=== PATIENT | female | born 1995 | race Caucasian/White ===

== ENCOUNTER 2024-08-29 11:29 | Emergency (ER) | payer OTHER, SELFPAY ==
[2024-08-29 12:51] VITALS: BP 125/84; PULSE 73; RESP 16; TEMP 36.2; O2SAT 98; BMI 26.2
[2024-08-29 13:20] LABS: Add Manual Diff / Slide Review NO; Hematocrit 39.9 % (36-46); Hemoglobin 13.9 g/dL (12.0-16.0); Lymphocytes Absolute Auto 3500 /uL (1100-4500); Mean Corpuscular HGB Conc 34.7 % (30-36); Mean Corpuscular Hemoglobin 31.0 PG (26-34); Mean Corpuscular Volume 89.3 fL (80-100); Platelet Count 280 X10^3/uL (150-400)
[2024-08-29 13:32] LABS: Culture Indicated Urine Cult Not Indicated
[2024-08-29 13:33] LABS: Alanine Aminotransferase 19 IU/L (<35); Albumin 4.7 g/dL (3.5-5.0); Albumin Globulin Ratio 1.4 (1.0-2.8); Alkaline Phosphatase 55 U/L (38-126); Blood Urea Nitrogen 6 mg/dL (7-17); Calcium 9.2 mg/dL (8.4-10.2); Carbon Dioxide 25 mmol/L (22-32); Chloride 104 mmol/L (98-107); Estimated Glomerular Filt Rate > 60 mL/min (>60); Globulin 3.3 g/dL (1.7-4.1); Glucose 91 mg/dL (70-99); HEMOLYSIS 18 (0-50); Lipase 59 U/L (23-300); Potassium 4.0 mmol/L (3.4-5.1); Sodium 138 mmol/L (137-145); Total Protein 8.0 g/dL (6.3-8.2)
--- NOTE | 2024-08-29 18:28 | DI.CT.S_ITS ---
PROCEDURE: CT ABDOMEN PELVIS W CON INDICATIONS: RLQ abd pain TECHNIQUE: After the administration of intravenous contrast, axial sections acquired from the lung bases to the pubic symphysis. Coronal and sagittal reformats were performed. For radiation dose reduction, the following was used: automated exposure control, adjustment of mA and/or kV according to patient size. COMPARISON: None. FINDINGS: Image quality: Diagnostic. Lower Chest: No significant findings. ABDOMEN: Liver: No solid mass. Gallbladder: No radiopaque gallstones or wall thickening. Biliary ducts: No biliary dilation. Pancreas: No ductal dilation. Spleen: Size is within normal limits. Adrenal Glands: No adrenal nodules. Kidneys and Ureters: No hydronephrosis. No solid mass. No complex renal cystic lesion which requires follow up. Stomach and Bowel: Normal colonic caliber, without significant wall thickening. Normal appendix. Peritoneum: No abnormal intraperitoneal fluid. No free air. Ventral Wall: No significant ventral hernia. Abdominal Nodes: No retroperitoneal or mesenteric adenopathy by size criteria. Vessels: Aorta and inferior vena cava are normal in size. PELVIS: Pelvic Organs: Intrauterine device in place. Left ovarian cyst measuring 2.3 cm. Lower vaginal cyst, may represent a Bartholin's gland cyst. Bladder: No bladder wall thickening, accounting for underdistention. Pelvic Nodes: No enlarged lymph nodes. Miscellaneous: No inguinal hernias are seen. Bones: No aggressive osseous abnormality. IMPRESSION: 1. No acute findings within the abdomen or pelvis. Normal appendix. 2. Likely Bartholin gland cyst within the lower vagina. Dictated by: Lavell Juan M.D. on 08/29/2024 at 19:08 Approved by: Lavell Juan M.D. on 08/29/2024 at 19:12
--- NOTE | 2024-08-29 18:47 | ED_ITS ---
HPI - Abdominal Pain General Chief Complaint: Abdominal Pain Stated Complaint: sent from [employer] for US stomach pain Time Seen by Provider: 08/29/24 18:27 Source: patient Mode of arrival: Ambulatory History of Present Illness HPI narrative: 29-year-old female with history of remote appendectomy and , no other abdominopelvic surgeries, complains of intermittent right lower quadrant pain, no known ovarian cysts, no vaginal bleeding, does not believe herself to be , no vaginal discharge. Increased discomfort right lower quadrant similar area since yesterday. Last bowel movement normal, no black or red stools, no loose stools or mucoid stools. No history of prior colitis or diverticulitis, no known inflammatory bowel disease. She is not known to have constipation issues. She denies painful or frequent urination. No recent antibiotic exposure. Related Data Allergies Allergy/AdvReac Type Severity Reaction Status Date / Time No Known Drug Allergies Allergy Verified 08/29/24 20:04 Patient History tobacco type: vaping Exam Narrative Exam Narrative: GENERAL: Well-developed patient, in mild distress. HEAD: Atraumatic. Normocephalic. EYES: Pupils equal round and reactive. Extraocular motions intact. No scleral icterus. No injection or drainage. ENT: Nose without bleeding, purulent drainage. Throat without erythema, tonsillar hypertrophy or exudate. Airway patent. NECK: Trachea midline. Non tender CARDIOVASCULAR: Regular rate and rhythm without murmurs, gallops, or rubs. RESPIRATORY: Clear to auscultation. Breath sounds equal bilaterally. No wheezes, rales, or rhonchi. GASTROINTESTINAL: Abdomen soft, non-tender, nondistended. EXTREMITIES: No edema or joint tenderness. BACK: Nontender without deformity or crepitance. No flank tenderness. NEURO: AOx3. Motor functions grossly nonfocal. SKIN: No rash or erythema of visible areas Initial Vital Signs Initial Vital Signs: Vital Signs Temperature 97.1 F L 08/29/24 12:51 Pulse Rate 73 08/29/24 12:51 Respiratory Rate 16 08/29/24 12:51 Blood Pressure 125/84 08/29/24 12:51 Pulse Oximetry 98 08/29/24 12:51 Oxygen Delivery Method Room Air 08/29/24 12:51 Course Orders Ordered: ED Orders 08/29/24 20:56 US pelvic complete Stat Discontinued Medications Ketorolac Tromethamine (Ketorolac 30 Mg/Ml Vial) 15 mg IV NOW ONE Stop: 08/29/24 20:05 Last Admin: 08/29/24 20:10 Dose: 15 mg Documented By: MARTHA Ondansetron HCl (Ondansetron 4 Mg/2 Ml Inj) 4 mg IV NOW PRN PRN Reason: Nausea And Vomiting Ondansetron HCl (Ondansetron 4 Mg Odt) 4 mg PO NOW PRN PRN Reason: Nausea And Vomiting Vital Signs Vital signs: Vital Signs - 8 hr 08/29/24 22:40 08/29/24 23:00 08/29/24 23:30 Pulse Rate 86 93 H 91 H Respiratory Rate 17 18 17 Blood Pressure 121/77 132/95 H 128/59 L Pulse Oximetry 97 97 96 MDM - Abdominal Pain Lab Data Attestation: I reviewed the patient's lab results. Lab results narrative: White blood cell count 85689, hemoglobin 13.9, platelets adequate. Glucose 91. Renal function normal. Serum CO2 and electrolytes normal. Liver functions and lipase normal. Urinalysis contaminated but not obviously infected. 08/29/24 13:07 08/29/24 13:07 Labs: Lab Results 08/29/24 08/29/24 Range/Units 12:45 13:07 WBC 10.7 (4.5-11.0) X10^3/uL RBC 4.47 (4.0-5.2) X10^6/uL Hgb 13.9 (12.0-16.0) g/dL Hct 39.9 (36-46) % MCV 89.3 (80-100) fL MCH 31.0 (26-34) PG MCHC 34.7 (30-36) % RDW 12.9 (11.6-14.8) % Plt Count 280 (150-400) X10^3/uL Neut % (Auto) 62.4 (50-75) % Lymph % (Auto) 32.4 (25-40) % Luce % (Auto) 4.1 (3-14) % Eos % (Auto) 0.4 L (2-4) % Baso % (Auto) 0.7 (0-2) % Neut # (Auto) 6700 (0532-0690) /uL Lymph # (Auto) 3500 (8660-1384) /uL Luce # (Auto) 400 (0-900) /uL Eos # (Auto) 0 (0-450) /uL Baso # (Auto) 100 (0-100) /uL Sodium 138 (137-145) mmol/L Potassium 4.0 (3.4-5.1) mmol/L Chloride 104 (98-107) mmol/L Carbon Dioxide 25 (22-32) mmol/L BUN 6 L (7-17) mg/dL Creatinine 0.76 (0.52-1.04) mg/dL Estimated GFR > 60 (>60) mL/min BUN/Creatinine Ratio 7.9 (6-22) Glucose 91 (70-99) mg/dL Calcium 9.2 (8.4-10.2) mg/dL Total Bilirubin 1.0 (0.2-1.3) mg/dL AST 30 (14-36) IU/L ALT 19 (<35) IU/L Alkaline Phosphatase 55 (38-126) U/L Total Protein 8.0 (6.3-8.2) g/dL Albumin 4.7 (3.5-5.0) g/dL Globulin 3.3 (1.7-4.1) g/dL Albumin/Globulin Ratio 1.4 (1.0-2.8) Lipase 59 (23-300) U/L Urine RBC 0-1/hpf (0-5/HPF) Urine WBC None seen (0-5/HPF) Ur Squamous Epith Cells 5-10 /hpf H (0-5/HPF) Urine Bacteria None seen (None) Ur Culture Indicated? Cult not indicated Vol Urine Centrifuged 10ml (spun) Point of care testing: Point of Care Testing Test Results Negative Urine Dip Bedside Urine Glucose Negative Bedside Urine Bilirubin - Negative Bedside Urine Ketone - Negative Urine Specific [place] 1.010 Bedside Urine Occult Blood +/- Bedside Urine pH 7.0 Bedside Urine Protein - Negative Bedside Urine Urobilinogen - Negative Bedside Urine Nitrite - Negative Bedside Urine Leukocytes - Negative Esterase MDM Narrative Medical decision making narrative: 29-year-old female with prior appy and prior , intermittent right lower quadrant, increased since yesterday. Afebrile, sirs screen negative. No significant right lower quadrant pain. Screening labs sent. Lab data: White blood cell count 61693, hemoglobin 13.9, platelets adequate. Glucose 91. Renal function normal. Serum CO2 and electrolytes normal. Liver functions and lipase normal. Urinalysis contaminated but not obviously infected. Labs unremarkable, not particularly tender on exam, however patient would like imaging after discussion of options, CT abdomen and pelvis ordered. CT abdomen and pelvis showed no acute process. See radiology report. Patient we would like additional imaging, ultrasound pelvis ordered. Ultrasound pelvis no acute changes. Discharged home, can take [id number] analgesics as needed. Further workup as an outpatient for now. Discharge Plan Departure Patient Disposition: Home Clinical Impression: Abdominal pain Activity Restrictions/Additional Instructions: Intermittent right lower quadrant abdominal pain of unclear cause. No fever on triage. No significant tenderness on transabdominal examination. Screening labs unremarkable. test negative. Urinalysis negative. CT abdomen and pelvis showed no acute changes. Ultrasound pelvis showed presence of IUD, no acute changes. Unclear cause of your discomfort. Consider taking Tylenol and or Motrin as needed for pain control. Further workup as an outpatient for now. Follow up with your regular doctor early next week. Return to this/nearest emergency department for any change worsening symptoms or any concerns prior. Referrals: ProviderBritney [Primary Care Provider, Family Practice] Stand Alone Forms: Patient Portal/API
[2024-08-29] MEDS: KETOROLAC 30 MG/ML VIAL 15 MG IV (20:10)
--- NOTE | 2024-08-29 20:13 | PC.NURSE ---
friend at bedside, pt laughing with friend
--- NOTE | 2024-08-29 20:56 | DI.US.S_ITS ---
PROCEDURE: US PELVIC COMPLETE INDICATIONS: RLQ pain, CT Abd/P neg, hcg neg TECHNIQUE: Real-time scanning was performed of the pelvic organs, with image documentation. Additional endovaginal scanning was necessary due to incomplete visualization of the adnexal and endometrial structures by transabdominal scanning. Doppler and color flow imaging was also performed to evaluate arterial and venous blood flow to the bilateral ovaries. COMPARISON: CT abdomen pelvis 08/29/2024. FINDINGS: Uterus: Uterus is anteverted and normal in size at 10.9 x 3.5 x 4.3 cm. The myometrium is homogeneous. The endometrium measures 8 mm combined thickness. IUD appears appropriately positioned. Ovaries: The right ovary measures 2.8 x 1.3 x 1.8 cm, with a calculated ovarian volume of 3.4 cc. The left ovary measures 2.8 x 2.5 x 2.4 cm, with a calculated ovarian volume of 8.7 cc. The ovaries have a normal sonographic appearance. Less than 12 follicles can be seen in each ovary. No adnexal masses are seen. There is a simple left ovarian cyst measuring 1.9 x 1.8 x 1.8 cm. Doppler and color flow imaging demonstratesintact arterial and venous blood flow to the bilateral ovaries. Other: No pathologic free abdominal or pelvic fluid. IMPRESSION: No sonographic evidence of ovarian torsion. IUD appears to be appropriately positioned. Simple appearing left ovarian cyst measuring up to 1.9 cm. Note: Concordant preliminary findings given to ordering ED provider by pipe bowl paint trimmer at time of imaging completion. Approved by: Naila Acuña M.D.,Ph.D. on 08/29/2024 at 22:46
[2024-08-29 22:40] VITALS: BP 121/77; PULSE 86; RESP 17; O2SAT 97
[2024-08-29 23:00] VITALS: BP 132/95; PULSE 93; RESP 18; O2SAT 97
[2024-08-29 23:30] VITALS: BP 128/59; PULSE 91; RESP 17; O2SAT 96
== END 2024-08-29 23:42 | disposition home or self-care (01) ==
PROVIDERS: Emergency Medicine; Emergency Provider Emergency Medicine
DX: R10.31 Right lower quadrant pain (principal)
CPT/HCPCS: 74177; 76856; 80053; 81003; 81015; 81025; 83690; 85025; 93976; 96374; 99283; 99284; J1885; Q9967